=== PATIENT | female | born 1980 | race Native Hawaiian/Other Pacific Islander ===

== ENCOUNTER 2017-03-16 06:07 | Day surgery (SDC) | payer BC ==
[2017-03-02 08:56] VITALS: BMI 27.0
[2017-03-16] MEDS ORDERED: Midazolam 2 MG/2 ML VIAL ONE (06:54)
[2017-03-16] MEDS ORDERED: Succinylcholine 200 mg/10 ml Inj IV ONE (06:54)
[2017-03-16] MEDS ORDERED: Propofol 10 mg/ml Inj (20 ML) ONE (06:54)
[2017-03-16] MEDS ORDERED: ePHEDrine 50 mg/ml Inj ONE (07:01)
[2017-03-16 07:17] LABS: BASO # 0.1 K/uL (0.0-0.2); BASO % 0.9 % (0.0-2.0); EOS # 0.2 K/uL (0.0-0.7); HEMATOCRIT 41.8 % (34.0-47.0); LYMPH # 2.6 K/uL (1.0-4.3); LYMPH % 31.3 % (20.0-40.0); MEAN CELL VOLUME 89.5 fl (81.0-99.0); MEAN CORPUSCULAR HEMOGLOBIN 29.3 pg (27.0-31.0); MEAN CORPUSCULAR HGB CONC 32.7 g/dL (33.0-37.0); MEAN PLATELET VOLUME 8.5 fl (7.2-11.7); MONO # 0.6 K/uL (0.0-0.8); MONO % 6.9 % (0.0-10.0); NEUT # 4.9 K/uL (1.8-7.0); NEUT % 57.9 % (50.0-75.0); RED CELL DISTRIBUTION WIDTH 13.7 % (11.5-14.5); WHITE BLOOD COUNT 8.4 K/uL (4.8-10.8)
[2017-03-16] MEDS ORDERED: Strong Iodine Topical Sol. 5%-10% ONE (07:32)
[2017-03-16] MEDS ORDERED: Ferric Subsulfate Sol(60 mL) ONE (07:33)
[2017-03-16] MEDS ORDERED: Silver Nitrate Topical - Stick ONE (07:34)
--- NOTE | 2017-03-16 07:46 | CP.SDSHP ---
Same Day Surgery H & P - History Proposed Procedure: EUA/D&C/Hysteroscopy/myomectomy/possible Myosure procedure Pre-Op Diagnosis: fibroid uterus - prolapsing - Previous Medical/Surgical History Previous Surgical History: C/S 2015 - Allergies Allergies: Allergies tree and shrub pollen Allergy (Intermediate, Verified 03/16/17 07:07) COUGH old trees shellfish derived Allergy (Verified 07/31/16 22:10) RASH - Physical Exam Vital Signs: Vital Signs 03/16/17 06:45 Temperature 97.6 F Pulse Rate 66 Respiratory 18 Rate Blood Pressure 107/56 L O2 Sat by Pulse 100 Oximetry Mental Status: Alert & Oriented x3 Neuro: WNL Heart: WNL Lungs: WNL GI: WNL - {Optional Preform as Required} Abdomen: WNL QUALITY ASSOCIATE: Other - Impression Impression: Fibroid uterus - prolapsing Pt. Evaluated Today:Candidate for Anesthesia & Procedure: Yes - Date & Time Date: 03/16/17 Time: 07:30 Short Stay Discharge - Short Stay Discharge Admitting Diagnosis/Reason for Visit: D25.9 Disposition: HOME/ ROUTINE Referrals: Ruiz Still DO [Primary Care Provider] -
[2017-03-16] MEDS ORDERED: ceFAZolin 1 GM in Sodium Chloride 0.9% 100 ML IVPB ONE (08:30)
[2017-03-16] MEDS ORDERED: Lactated Ringer's 1,000 ML IV ONE (08:30)
[2017-03-16] MEDS ORDERED: Dexamethasone 4 mg/1 ml ONE (08:43)
[2017-03-16] MEDS ORDERED: Oxycodone/Acetaminophen 5/325 mg Tab PO PRN (09:36)
--- NOTE | 2017-03-16 09:43 | PCM.SURG1 ---
Surgeon's Initial Post Op Note - Surgeon's Notes Surgeon: Kita Still DO Cosmetician Apprentice: none Type of Anesthesia: General LMA Anesthesia Administered By: Dr Lebron Pre-Operative Diagnosis: Prolapsing fibroid Operative Findings: -no prolapsing fibroid. -no cervical fibroid. - endometrial fibroid posterior wall Post-Operative Diagnosis: as above Operation Performed: Dilation; hysteroscopy; Myomectomy via Myosure; currettage using Myosure Specimen/Specimens Removed: fibroid/endometrial curretting Estimated Blood Loss: EBL {In ML}: 0 Blood Products Given: N/A Drains Used: No Drains Post-Op Condition: Good Date of Surgery/Procedure: 03/16/17 Time of Surgery/Procedure: 08:45
[2017-03-16 11:08] VITALS: RESP 18
[2017-03-16 13:34] VITALS: BP 114/65; PULSE 66; TEMP 98.4; O2SAT 97
--- NOTE | 2017-03-19 17:46 | OP ---
PROCEDURE DATE: 03/16/2017 PREOPERATIVE DIAGNOSIS: Prolapsing fibroid. POSTOPERATIVE DIAGNOSIS: No prolapsing fibroid noted in the endometrium, a fibroid was noted in the posterior wall. PROCEDURE: Dilation, hysteroscopy, myomectomy using MyoSure and curettage using MyoSure. SPECIMENS: Fibroid and endometrial curetting. SURGEON: Ruzi Still DO. ANESTHESIOLOGIST: Dr. Lebron. ANESTHESIA: General LMA. BLOOD LOSS: None BLOOD PRODUCTS: None. DRAINS: None. POSTOPERATIVE CONDITION: Good. PROCEDURE: The patient was brought to the operating room. She was placed in a supine position. Aft er successful general induction LMA was performed by Dr. Lebron, she was placed in a lithotomy posit ion. Compression boots were placed on both lower extremities. She was then draped and prepped in th e usual sterile manner. Catheter was placed into the urethra and noted to drain clear return and thi s was removed. Exam under anesthesia was performed. There was no cervical fibroid noted upon exam. The uterus is not enlarged. Thereafter, a weighted speculum was placed in the posterior fornix of t he vagina, right angle retractor in the anterior fornix of the vagina to visualize the cervix. Cervi x was noted to be closed. Thereafter, gradual dilatation using dilatation was performed. Thereafter , the hysteroscope was then introduced into the endocervical canal. No endocervical lesions were not ed, but upon entering the endometrial cavity, a large fibroid was noted in the posterior wall. Hyste roscope was introduced past the fibroid and both ostia were identified. Thereafter, decision was the n made to use the use the MyoSure and using the March MyoSure myomectomy was performed. Thereafter, once the specimen was noted to be complete, curettage was done in the endometrial cavity circumferent ially and all specimen was removed and accounted for. Prior to reversing of general anesthesia, the tenaculum site was noted to have some bleeding. Monsel's solution as well as a 2-0 Vicryl suture was placed. Hemostasis assured. All equipment was removed and accounted for. She was successfully rev ersed from general anesthesia and brought to recovery in stable condition. Ruiz Still DO cc: 135 TT: 03/19/2017 17:45:48 jn
== END 2017-03-16 12:30 | disposition home or self-care (01) ==
LOC: H.OPSURG 06:07
PROVIDERS: ATTEND Obstetrics & Gynecology
DX: D25.9 Leiomyoma of uterus, unspecified (principal)
CPT/HCPCS: 36415; 58558; 85025; 86850; 86900; 88305; J0330; J0690; J1100; J1885; J2001; J2250; J2405; J2704; J3010; J7030; J7120